=== PATIENT | female | born 1985 | race Caucasian/White ===

== ENCOUNTER 2016-02-19 14:28 | Emergency (ER) | payer OTHER ==
--- NOTE | 2016-02-19 18:14 | ED CLINICAL REPORT ---
Clinical Report - Physicians/Mid Levels [facility] [address] [place] [address] 02/19/2016 14:30 Patient: SUSAN ROBLES Time Seen: 15:53 Feb 19 2016. Arrived- By private vehicle. Historian- patient. CPT: ER phys charges level 4 (#[id number]). HISTORY OF PRESENT ILLNESS Chief Complaint: High blood pressure, protein in the urine and ESCALERA. Concerned with . ( Seen at clinic today and dip UA showed protein and pt had hypertension with ESCALERA.). This started today and is still present. At its maximum, severity described as moderate. When seen in the E.D., severity described as moderate. Modifying factors. Not worsened by anything. Not relieved by anything. The patient has had a headache. (No abdominal cramping or vaginal discharge/bleeding.). Similar symptoms previously: As bad. ( Chronic headaches). Recent medical care: The patient was seen recently at another facility in a clinic (today). Seen for similar symptoms. ( Dip UA showed protein so patient sent to the ER.). REVIEW OF SYSTEMS No fever, sore throat, sinus drainage, nasal congestion or cough. No difficulty breathing, chest pain, abdominal pain, nausea or vomiting. No diarrhea, black stools, bloody stools, chills or difficulty with urination. No skin rash, back pain, calf pain, blackouts or double vision. The patient has had a headache. No difficulty with ambulation. All systems otherwise negative, except as recorded above. PAST HISTORY Cervical Cancer. Vaginal Delivery. ADDITIONAL SURGERIES: Removed some cervix. Mildly elevated BP with prior but was not treated. Medications: Prenatals. Allergies: No Known Drug Allergy. SOCIAL HISTORY Heavy tobacco smoker (cigarette)- less than 1 pack per day. History of drug use: marijuana. ADDITIONAL NOTES The nursing notes have been reviewed. PHYSICAL EXAM Vital Signs: 02/19/2016 15:10 BP: 138/92. HR: 110. RR: 18. O2 saturation: 100%. Temp: 98.0 F. Appearance: Alert. Anxious. Patient in mild distress. Eyes: Pupils equal, round and reactive to light. Eyes normal inspection. (Mild palpation scalp and neck tenderness.). ENT: Ears normal. Pharynx normal. Neck: Normal inspection. Neck supple. CVS: Normal heart rate and rhythm. Heart sounds normal. Pulses normal. Respiratory: No respiratory distress. Breath sounds normal. Chest nontender. Abdomen: Soft and nontender. Bowel sounds normal. Back: Normal inspection. Skin: Skin warm. Normal skin color. No rash. Extremities: Extremities exhibit normal ROM. No lower extremity edema. Neuro: Oriented X 3. No motor deficit. No sensory deficit. Reflexes normal. LABS, X-RAYS, AND EKG Laboratory Tests: UA-Culture if indicated: (EULALIO: 02/19/2016 15:25) ( MsgRcvd 02/19/2016 15:48) Final results Test Result Flag Units (Reference) URINE COLOR YELLOW URINE APPEARANCE CLEAR URINE GLUCOSE NEGATIVE (NEGATIVE) URINE BILIRUBIN NEGATIVE (NEGATIVE) URINE KETONE NEGATIVE (NEGATIVE) URINE SPECIFIC GRAVITY 1.015 (1.010-1.030) URINE PH 7.0 (5.0-8.0) URINE PROTEIN NEGATIVE (NEGATIVE) URINE UROBILINOGEN 0.2 EU/dL (0.2-1.0) URINE NITRITE NEGATIVE (NEGATIVE) URINE BLOOD NEGATIVE (NEGATIVE) URINE LEUK ESTERASE NEGATIVE (NEGATIVE) URINE RBC NONE SEEN rbc/hpf (0-1) URINE WBC 0-1 wbc/hpf (0-1) URINE EPITHELIAL CELLS 3-5 EPI/hpf (0-5) URINE BACTERIA FEW (1+) (NONE SEEN) URINE COMMENT CULT NOT INDICATED 1+ AMORPHOUSURINE CULTURES ARE SET-UP BASED ON THE FOLLOWING CRITERIA:POSITIVE NITRITEPOSITIVE LEUKOCYTE ESTERASEGREATER THAN 10 WHITE BLOOD CELLSMODERATE (2+) OR GREATER BACTERIA CBC w Diff: (EULALIO: 02/19/2016 16:55) ( MsgRcvd 02/19/2016 17:06) Final results Test Result Flag Units (Reference) WHITE BLOOD COUNT 8.6 K/uL (4.5-11.5) RED BLOOD COUNT 3.79 L M/uL (4.00-5.20) HEMOGLOBIN 10.5 L gm/dL (12.0-16.0) HEMATOCRIT 32.3 L % (36.0-46.0) MEAN CELL VOLUME 85 fL (80-100) MEAN CORPUSCULAR HGB 28 pg (26-34) MEAN CORPUSCULAR HGB CONC 33 g/dL (31-37) RED CELL DISTRIBUTION WIDTH 19.9 H % (11.6-14.8) PLATELET COUNT 126 L K/uL (150-400) NEUTROPHIL % 71.9 % (50-75) LYMPH % 19.4 L % (25-40) MONO % 5.8 % (3-14) EOSINOPHIL % 2.6 % (0-4) BASOPHIL % 0.3 % (0-2) CMP: (EULALIO: 02/19/2016 16:55) ( MsgRcvd 02/19/2016 17:20) Final results Test Result Flag Units (Reference) GLUCOSE 79 mg/dL (70-110) BUN 10 mg/dL (7-18) CREATININE 0.6 mg/dL (0.6-1.3) Estimated GFR >60 mL/min Estimated GFR- >60 mL/min Note: Persistent reduction over 3 months in eGFR<60 mL/min/1.73 m2 defines CKD. Patients with eGFR values>=60 mL/min/1.73 m2 may also have CKD if evidence ofpersistent proteinuria. Additional information may be foundat [email or web address].org. SODIUM 137 mmol/L (136-145) POTASSIUM 3.9 mmol/L (3.5-5.1) CHLORIDE 105 mmol/L (98-107) CARBON DIOXIDE 24 mmol/L (21-32) CALCIUM 8.6 mg/dL (8.5-10.1) TOTAL PROTEIN 6.6 g/dL (6.4-8.2) ALBUMIN 2.8 L g/dL (3.3-5.0) BILIRUBIN, TOTAL 0.2 mg/dL (0.0-1.0) ALKALINE PHOSPHATASE 50 U/L (46-116) AST (SGOT) 13 L U/L (15-37) ALT (SGPT) 20 U/L (12-78) . PROGRESS AND PROCEDURES Course of Care: Pt with several reasonable blood pressures. There is no protein in the urine on our UA. No concern for pre-ecclampsia. Patient/family counseled. Disposition: Discharged. Condition: stable. CLINICAL IMPRESSION Essential hypertension. 16 week NO protein in the urine Mild hypertension. Tension headache. INSTRUCTIONS No strenuous activity. Rest. Follow a low salt diet. Warnings: Further evaluation is necessary. GENERAL WARNINGS: Return or contact your physician immediately if your condition worsens or changes unexpectedly, if not improving as expected, or if other problems arise. Your Current Medications: CONTINUE TAKING THE FOLLOWING MEDICATIONS: Prenatals*. OTC Medications: Acetaminophen (available over the counter): take according to label instructions. Follow-up: Follow up with your doctor in one week. Call for an appointment. Understanding of the discharge instructions verbalized by patient. Discharge instructions reviewed with and understanding was verbalized by spouse. (Electronically signed by Leland Sexton MD 02/20/2016 21:49)
--- NOTE | 2016-02-19 18:14 | ED NURSING NOTES ---
Clinical Report - Nurses [facility] [address] [place] [address] 02/19/2016 14:30 Patient: SUSAN ROBLES TRIAGE Triage time 15:10 Feb 19 2016. Acuity: LEVEL 3. Chief Complaint: (elevated BP). Alert. No acute distress. IRWIN COMA SCORE: Irwin Coma Scale: 15- eyes open spontaneously (4); best verbal response- oriented x 4 (5); best motor response- obeys commands (6). --15:18 Tamiko Thornton R.N. 15:10 02/19/16. BP: 138/92. HR: 110. RR: 18. O2 saturation: 100%. Temp: 98.0 F. Pain level now 09/19. --15:18 Tamiko Thornton R.N. Weight: 136 kg stated. Height/Length: 67 inches Per Patient. BMI: 47. --15:09 Tamiko Thornton R.N. Medications Prenatals. --15:14 Tamiko Thornton R.N. Allergies No Known Drug Allergy. --15:13 Tamiko Thornton R.N. History Arrived by private vehicle. Historian: patient. Accompanied by (BF). Primary physician (Monisha Marcos - [facility]). ( Sent over from [facility] Women's Health for BP check. Pt is 16 weeks PG. A0. 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 Pt was at [facility] ER, but wait was too long. Pt c/o Headache today. 09/19.). This started today. Treatment STRIKER OFF: None. PAST MEDICAL HX: Last normal menstrual period- October 31. Currently : Due in July. Has not received seasonal influenza immunization. SOCIAL HX: Heavy tobacco smoker (cigarette)- less than 1 pack per day. History of drug use: marijuana. No alcohol use. FALL RISK ASSESSMENT: Fall risk assessment completed. No fall risk identified. NUTRITIONAL RISK ASSESSMENT: The nutritional risk assessment revealed no deficiencies. FUNCTIONAL ASSESSMENT: Functional assessment: no impairments noted. LEARNING NEEDS ASSESSMENT: The learning needs assessment revealed no barriers. --15:18 Tamiko Thornton R.N. PROBLEMS: Cervical Cancer. Vaginal Delivery. --15:15 Tamiko Thornton R.N. ADDITIONAL SURGERIES: Removed some cervix. --15:15 Tamiko Thornton R.N. Interventions ID band on patient. To room. --15:18 Tamiko Thornton R.N. PHYSICAL ASSESSMENT 15:32 02/19/16. Ambulatory to room. Patient gowned. GENERAL / NEURO / PSYCH: Alert. Oriented X 4. Appears in no acute distress. RESPIRATORY: Respirations not labored. SKIN: Skin is warm and dry. --15:32 Salena Alberts R.N. NURSING PROGRESS NOTES ( obtaining a UA.). --15:20 Tamiko Thornton R.N. Patient ID band checked: patient confirmed. Clean catch urine collected with return of yellow-colored clear urine; sample sent to lab for urinalysis. Specimen labeled in the presence of the patient. --15:23 Tamiko Thornton R.N. 15:33 02/19/16. Pulse oximeter and NIBP monitor placed on patient. Patient gowned. Head of bed elevated. Call light placed in reach. Side rails up x 1. Bed placed in lowest position. Brakes of bed on. --15:33 Salena Alberts R.N. 18:03 02/19/16. BP: 154/91. HR: 92. O2 saturation: 100%. --18:03 Candelaria Vargas, RENARD Tech1. DISPOSITION / DISCHARGE Condition at departure: improved. The goals identified in the patient's plan of care were met. No learning barriers present. Discharge instructions provided and reviewed with the patient. Reviewed medication(s) side effects, precautions, dosing and course information. Patient verbalized understanding. Written instructions provided in Bangladeshi. The patient was discharged home and accompanied by spouse. She left the Emergency Department ambulatory and via private vehicle. Spouse driving. FALL RISK ASSESSMENT: Fall risk assessment completed. No fall risk identified. --18:35 Alex Sánchez R.N. 18:34 02/19/16. BP: 149/58. HR: 97. RR: 16. O2 saturation: 98% on room air. Temp: 98.2 F (oral). --18:35 Alex Sánchez R.N. Departure time: 1835 PM. --18:35 Alex Sánchez R.N. Locked/Released at 02/20/2016 23:15 by Alex Sánchez R.N.
--- NOTE | 2016-02-19 18:14 | ED NURSING NOTES ---
Clinical Report - Nurses [facility] [address] [place] [address] 02/19/2016 14:30 Patient: SUSAN ROBLES TRIAGE Triage time 15:10 Feb 19 2016. Acuity: LEVEL 3. Chief Complaint: (elevated BP). Alert. No acute distress. IRWIN COMA SCORE: Irwin Coma Scale: 15- eyes open spontaneously (4); best verbal response- oriented x 4 (5); best motor response- obeys commands (6). --15:18 Tamiko Thornton R.N. 15:10 02/19/16. BP: 138/92. HR: 110. RR: 18. O2 saturation: 100%. Temp: 98.0 F. Pain level now 09/19. --15:18 Tamiko Thornton R.N. Weight: 136 kg stated. Height/Length: 67 inches Per Patient. BMI: 47. --15:09 Tamiko Thornton R.N. Medications Prenatals. --15:14 Tamiko Thornton R.N. Allergies No Known Drug Allergy. --15:13 Tamiko Thornton R.N. History Arrived by private vehicle. Historian: patient. Accompanied by (BF). Primary physician (Monisha Marcos - [facility]). ( Sent over from [facility] Women's Health for BP check. Pt is 16 weeks PG. A0. 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 Pt was at [facility] ER, but wait was too long. Pt c/o Headache today. 09/19.). This started today. Treatment NET APPLICATIONS DEVELOPER: None. PAST MEDICAL HX: Last normal menstrual period- October 31. Currently : Due in July. Has not received seasonal influenza immunization. SOCIAL HX: Heavy tobacco smoker (cigarette)- less than 1 pack per day. History of drug use: marijuana. No alcohol use. FALL RISK ASSESSMENT: Fall risk assessment completed. No fall risk identified. NUTRITIONAL RISK ASSESSMENT: The nutritional risk assessment revealed no deficiencies. FUNCTIONAL ASSESSMENT: Functional assessment: no impairments noted. LEARNING NEEDS ASSESSMENT: The learning needs assessment revealed no barriers. --15:18 Tamiko Thornton R.N. PROBLEMS: Cervical Cancer. Vaginal Delivery. --15:15 Tamiko Thornton R.N. ADDITIONAL SURGERIES: Removed some cervix. --15:15 Tamiko Thornton R.N. Interventions ID band on patient. To room. --15:18 Tamiko Thornton R.N. PHYSICAL ASSESSMENT 15:32 02/19/16. Ambulatory to room. Patient gowned. GENERAL / NEURO / PSYCH: Alert. Oriented X 4. Appears in no acute distress. RESPIRATORY: Respirations not labored. SKIN: Skin is warm and dry. --15:32 Salena Alberts R.N. NURSING PROGRESS NOTES ( obtaining a UA.). --15:20 Tamiko Thornton R.N. Patient ID band checked: patient confirmed. Clean catch urine collected with return of yellow-colored clear urine; sample sent to lab for urinalysis. Specimen labeled in the presence of the patient. --15:23 Tamiko Thornton R.N. 15:33 02/19/16. Pulse oximeter and NIBP monitor placed on patient. Patient gowned. Head of bed elevated. Call light placed in reach. Side rails up x 1. Bed placed in lowest position. Brakes of bed on. --15:33 Salena Alberts R.N. 18:03 02/19/16. BP: 154/91. HR: 92. O2 saturation: 100%. --18:03 Candelaria Vargas, RENARD Tech1. DISPOSITION / DISCHARGE Condition at departure: improved. The goals identified in the patient's plan of care were met. No learning barriers present. Discharge instructions provided and reviewed with the patient. Reviewed medication(s) side effects, precautions, dosing and course information. Patient verbalized understanding. Written instructions provided in Kuwaiti. The patient was discharged home and accompanied by spouse. She left the Emergency Department ambulatory and via private vehicle. Spouse driving. FALL RISK ASSESSMENT: Fall risk assessment completed. No fall risk identified. --18:35 Alex Sánchez R.N. 18:34 02/19/16. BP: 149/58. HR: 97. RR: 16. O2 saturation: 98% on room air. Temp: 98.2 F (oral). --18:35 Alex Sánchez R.N. Departure time: 1835 PM. --18:35 Alex Sánchez R.N. Locked/Released at 02/20/2016 23:15 by Alex Sánchez R.N.
--- NOTE | 2016-02-19 18:14 | ED ORDER SUMMARY ---
..... Patient: SUSAN ROBLES OrderSheet [facility] VisitID: [id number] [place] [address] 30y, F Registration Date/Time: 02/19/2016 ORDER SHEET Weight: 136.0 kg (stated) Allergies: No Known Drug Allergy GENERAL ORDERS: UA-Culture if indicated Urgent (15:20 02/19/2016 Erie R.NJackson per protocol) (15:23 NHouse ER Tech1) CBC w Diff Urgent (16:38 02/19/2016 Frida GOTTI) (Ack 17:03 NHouse ER Tech1) (17:30 NHouse ER Tech1) CMP Urgent (16:38 02/19/2016 Frida GOTTI) (Ack 17:03 NHouse ER Tech1) (17:30 NHouse ER Tech1) - (repeat blood pressure.) (17:55 02/19/2016 Frida GOTTI) (18:03 LNations ER Tech1) MEDICATION ORDERS: IV FLUIDS: ORDER SHEET NOTES: [Electronically signed by Leland Sexton MD (21:49 02/20/2016)] [Electronically signed by Alex Sánchez R.N. (23:15 02/20/2016)] [Electronically locked/signed by Alex Sánchez R.N. (23:15 02/20/2016)]
--- NOTE | 2016-02-19 18:14 | ED ORDER SUMMARY ---
..... Patient: SUSAN ROBLES OrderSheet [facility] VisitID: [id number] [place] [address] 30y, F Registration Date/Time: 02/19/2016 ORDER SHEET Weight: 136.0 kg (stated) Allergies: No Known Drug Allergy GENERAL ORDERS: UA-Culture if indicated Urgent (15:20 02/19/2016 Erie R.NJackson per protocol) (15:23 NHouse ER Tech1) CBC w Diff Urgent (16:38 02/19/2016 Frida GOTTI) (Ack 17:03 NHouse ER Tech1) (17:30 NHouse ER Tech1) CMP Urgent (16:38 02/19/2016 Frida GOTTI) (Ack 17:03 NHouse ER Tech1) (17:30 NHouse ER Tech1) - (repeat blood pressure.) (17:55 02/19/2016 Frida GOTTI) (18:03 LNations ER Tech1) MEDICATION ORDERS: IV FLUIDS: ORDER SHEET NOTES: [Electronically signed by Leland Sexton MD (21:49 02/20/2016)] [Electronically signed by Alex Sánchez R.N. (23:15 02/20/2016)] [Electronically locked/signed by Alex Sánchez R.N. (23:15 02/20/2016)]
--- NOTE | 2016-02-20 23:15 | ED DISCHARGE INSTRUCTIONS ---
Patient: SUSAN ROBLES General Instructions [facility] VisitID: [id number] [place] [address] 30y, F Registration Date/Time: 02/19/2016 Essential hypertension. 16 week NO protein in the urine Mild hypertension. Tension headache. INSTRUCTIONS No strenuous activity. Rest. Follow a low salt diet. Warnings: Further evaluation is necessary. GENERAL WARNINGS: Return or contact your physician immediately if your condition worsens or changes unexpectedly, if not improving as expected, or if other problems arise. Your Current Medications: CONTINUE TAKING THE FOLLOWING MEDICATIONS: Prenatals*. OTC Medications: Acetaminophen (available over the counter): take according to label instructions. Follow-up: Follow up with your doctor in one week. Call for an appointment. Understanding of the discharge instructions verbalized by patient. Discharge instructions reviewed with and understanding was verbalized by spouse. ADDITIONAL INFORMATION High Blood Pressure -- To Be Confirmed [No Tx] Your blood pressure was higher today than normal. Sometimes anxiety or pain can cause a temporary rise in blood pressure that later returns to normal. If your blood pressure is high on one measurement, this does not mean that you have hypertension (a chronic illness). However, you must have your blood pressure measured again within the next few days to find out if its still high. A normal blood pressure is 120/80 or less. The first (top) number is the "systolic" pressure. The second (bottom) number is the "diastolic" pressure. Hypertension exists when either the top number is 140 or higher, OR the bottom number is 90 or higher on repeated measurements. Blood pressure in the range of 120-140 (systolic) or 80-89 (diastolic) is considered "pre-hypertension". This means your are at risk for getting hypertension. You should have regular blood pressure checks to be sure your blood pressure is not rising. Home Care: Measure your blood pressure on 3 different days and write down the results. This can be done at your doctor's office or this facility. Some pharmacies and grocery stores offer automated blood pressure machines for your use. Follow Up: If your blood pressure is "high" (over 120/80) on 2 out of 3 days, you will need to follow up with your doctor for further evaluation and treatment. DO NOT PUT THIS OFF! Untreated high blood pressure increases the risk for heart attack, also known as acute myocardial infarction, or AMI, and stroke. It is a treatable condition. Get Prompt Medical Attention if any of the following occur: Chest pain or shortness of breath Severe headache Throbbing or rushing sound in the ears Nosebleed Sudden severe abdominal pain Extreme drowsiness, confusion or fainting Dizziness or vertigo (dizziness with spinning sensation) Weakness of an arm or leg or one side of the face Difficulty with speech or vision You have been given the following additional information: Hypertension, To Be Confirmed No strenuous activity. Rest. (Electronically signed by Leland Sexton MD 02/20/2016 21:49)
--- NOTE | 2016-02-20 23:15 | ED MED RECONCILIATION SUMMARY ---
Patient: SUSAN ROBLES Medication Reconciliation Report [facility] VisitID: [id number] [place] [address] 30y, F Registration Date/Time: 02/19/2016 Weight: 136.0 kg Height/Length: 67 in. BMI: 47.0 ALLERGIES: No Known Drug Allergy The patient's Home Medications are listed below: CONTINUE TAKING THE FOLLOWING MEDICATIONS: Prenatals The source(s) of the original Home Medication information: Not obtained. The following Medications were given to the patient in the Emergency Department: None. The following Medications were prescribed to the patient: Acetaminophen (available over the counter): take according to label instructions. -- Leland Sexton MD
--- NOTE | 2016-02-20 23:15 | ED MAR SUMMARY ---
..... Medication Administration Record [facility] [address] [place], [place] [id number] Patient: SUSAN ROBLES [place] Visit ID: [id number] 30y, F Weight: 136.0 kg Height/Length: 67 in BMI: 47 ALLERGIES: No Known Drug Allergy
--- NOTE | 2016-02-20 23:15 | ED MED RECONCILIATION SUMMARY ---
Patient: SUSAN ROBLES Medication Reconciliation Report [facility] VisitID: [id number] [place] [address] 30y, F Registration Date/Time: 02/19/2016 Weight: 136.0 kg Height/Length: 67 in. BMI: 47.0 ALLERGIES: No Known Drug Allergy The patient's Home Medications are listed below: CONTINUE TAKING THE FOLLOWING MEDICATIONS: Prenatals The source(s) of the original Home Medication information: Not obtained. The following Medications were given to the patient in the Emergency Department: None. The following Medications were prescribed to the patient: Acetaminophen (available over the counter): take according to label instructions. -- Leland Sexton MD
--- NOTE | 2016-02-20 23:15 | ED MAR SUMMARY ---
..... Medication Administration Record [facility] [address] [place], [place] [id number] Patient: SUSAN ROBLES [place] Visit ID: [id number] 30y, F Weight: 136.0 kg Height/Length: 67 in BMI: 47 ALLERGIES: No Known Drug Allergy
== END 2016-02-19 18:36 | disposition home or self-care (01) ==
LOC: ED SRH 14:28
DX: O16.2 Unspecified maternal hypertension, second trimester (principal); O99.352 Diseases of the nervous system complicating pregnancy, second trimester; G44.209 Tension-type headache, unspecified, not intractable; Z3A.16 16 weeks gestation of pregnancy
CPT/HCPCS: 90004; 90074; 90100; 95059